=== PATIENT | male | born 1990 | race Caucasian/White ===

== ENCOUNTER 2018-03-17 11:40 | Emergency (ER) | payer OTHER ==
[2018-03-17 13:27] VITALS: BP 122/83
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
== END 2018-03-17 13:26 | disposition home or self-care (01) ==
LOC: ED 11:40
DX: F07.81 Postconcussional syndrome (principal); V43.52XA Car driver injured in collision with other type car in traffic accident, initial encounter; Y92.410 Unspecified street and highway as the place of occurrence of the external cause
CPT/HCPCS: 99281